=== PATIENT | male | born 1965 | race Caucasian/White ===

== ENCOUNTER 2017-02-20 21:43 | Emergency (ER) | payer OTHER ==
[~2017-02-20] VITALS: Ht 152.4 cm; Wt 85.7 kg
[2017-02-20] MEDS ORDERED: ATOR20TA PO (21:51)
[2017-02-20] MEDS ORDERED: OMEP-110 PO (21:51)
[2017-02-20 22:29] LABS: HEMATOCRIT 43.2 % (39.2-51.8); HEMOGLOBIN 14.5 g/dL (13.7-18.0); WHITE BLOOD COUNT 5.9 x10^3/uL (3.4-10)
[2017-02-20 22:39] LABS: BLOOD UREA NITROGEN 25 mg/dL (7-18)
[2017-02-21 00:37] VITALS: BP 140/86
== END 2017-02-21 00:39 | disposition home or self-care (01) ==
LOC: ED 23:55
DX: R10.31 Right lower quadrant pain (principal); R10.32 Left lower quadrant pain; Z88.0 Allergy status to penicillin
CPT/HCPCS: 36415; 74176; 80048; 81003; 82040; 85025; 99285